=== PATIENT | male | born 1975 | race African-American/Black ===

== ENCOUNTER → 2020-04-29 | Outpatient (CLI) | payer OTHER ==
--- NOTE | 2020-04-29 17:18 | RAD ---
EXAM: Scrotal sonogram. HISTORY: Right testicular nodule. TECHNIQUE: Sonographic imaging of the scrotum with spectral waveform analysis was performed. COMPARISON: None. FINDINGS: The testes are normal in size and demonstrate normal symmetric blood flow. No focal testicu lar parenchymal lesion is seen. The right epididymis underlies the site of reported palpable concern. No epididymal lesion is seen. There is no hydrocele or varicocele. There is no lymphadenopathy. IMPRESSION: Unremarkable scrotal sonogram. No suspicious lesion is seen. There is a normal-appearing right epididymis underlying the site of reported palpable concern. Continued clinical follow-up of pa lpable abnormalities is recommended. Repeat imaging can be performed if there is continuing concern. Electronically signed by: Nisa Trammell MD (04/29/2020 5:15 PM) [id number]
== END ==
LOC: US 11:06
DX: N49.2 Inflammatory disorders of scrotum (principal)
CPT/HCPCS: 76870

== ENCOUNTER → 2021-04-14 | Outpatient (CLI) | payer OTHER ==
--- NOTE | 2021-04-14 08:16 | RAD ---
STUDY: US Abdomen Complete INDICATION: Right upper quadrant pain. COMPARISON: None. TECHNIQUE: Real-time grayscale and color Doppler sonographic evaluation of the abdomen. Findings: Pancreas: What is seen of the pancreas is unremarkable. Liver: Within normal limits for size and echogenicity measuring 16.6 cm longitudinal. Aorta/IVC/Main Portal Vein: The proximal and mid abdominal aorta are nonaneurysmal. The distal abdomi nal aorta is obscured by bowel gas. Patent IVC at the liver. Patent main portal vein with hepatopedal flow. Gall Bladder: Normal wall thickness at under 0.2 cm. No gallstones or sludge. Common Bile Duct: Mildly prominent in caliber measuring just over 0.5 cm. Right Kidney: Measures 11.9 cm in length. No hydronephrosis. Within normal limits cortical thickness. Left Kidney: Measures 10.6 cm in length. No hydronephrosis. Within normal limits cortical thickness. Spleen: Normal in size at 10.6 cm longitudinal. Miscellaneous: None. Impression: 1. Mildly prominent common bile duct measuring just over 0.5 cm but of questionable clinical signifi cance as the gallbladder is unremarkable and the intrahepatic biliary tree does not appear dilated. T his is favored most likely within normal limits for this patient unless any history would suggest oth erwise, such as if bilirubin levels are elevated. 2. Unremarkable liver, kidneys and partially visualized pancreas. Within normal limits size of the s pleen. Electronically signed by: SIS LYNN MD (04/14/2021 8:14 AM) [facility]
== END ==
LOC: US 07:28
PROVIDERS: ATTEND Family Medicine
DX: R10.11 Right upper quadrant pain (principal)
CPT/HCPCS: 76700